=== PATIENT | male | born 1975 | race Caucasian/White ===

== ENCOUNTER 2023-09-26 07:05 | Day surgery (SDC) | payer BC ==
[~2023-09-26] VITALS: Ht 177.8 cm; Wt 168.7 kg
[2023-09-26] MEDS: MEPERIDINE 100 MG INJ. 100 MG/ML VIAL ONE (10:17)
[2023-09-26] MEDS: MIDAZOLAM HCL 5 MG/5 ML VIAL ONE (10:17)
[2023-09-26 10:20] VITALS: O2SAT 100
[2023-09-26] MEDS ORDERED: MIDAZOLAM HCL 5 MG/5 ML VIAL ONE (10:47)
[2023-09-26 14:44] VITALS: BP_SYST 131; PULSE 59; RESP 18
== END 2023-09-26 11:40 | disposition home or self-care (01) ==
LOC: SDS 07:05 → SMU 07:06 → SDS 11:40
PROVIDERS: ATTEND Internal Medicine Gastroenterology
DX: Z12.11 Encounter for screening for malignant neoplasm of colon (principal); D12.2 Benign neoplasm of ascending colon; D12.4 Benign neoplasm of descending colon; K57.30 Diverticulosis of large intestine without perforation or abscess without bleeding; K64.8 Other hemorrhoids; I10 Essential (primary) hypertension; D64.9 Anemia, unspecified; E66.9 Obesity, unspecified; Z68.43 Body mass index [BMI] 50.0-59.9, adult; Z98.84 Bariatric surgery status
CPT/HCPCS: 99152; 45385; 88305; 99153; G0378; J2250; J2175